=== PATIENT | female | born 1970 ===

== ENCOUNTER 2024-04-11 05:44 | Day surgery (SDC) | payer OTHER ==
[2024-04-04 12:45] LABS: ALBUMIN 3.8 gm/dL (3.4-5.0); BILIRUBIN TOTAL 0.67 mg/dL (0.3-1.2); CALCIUM 9.4 mg/dL (8.5-10.1); CREATININE SERUM 0.83 mg/dL (0.55-1.02); GFR 71.37; GLOBULINA 3.7 G/DL (2.4-3.5); POTASSIUM 3.74 mEq/L (3.5-5.1); TOTAL PROTEIN 7.5 gm/dL (6.4-8.2)
[2024-04-04 13:11] VITALS: BP 142/79
[~2024-04-11] VITALS: Ht 170.2 cm; Wt 72.1 kg
[2024-04-11] MEDS ORDERED: KETOROLAC TROMETHAMINE 30 MG VIAL IV STA (15:18)
[2024-04-11] MEDS ORDERED: METRONIDAZOLE/SODIUM CHLORIDE 500 MG/100 ML PIGGYBACK IV SCH (15:45)
[2024-04-11] MEDS ORDERED: CEFAZOLIN SODIUM 1,000 MG VIAL IV SCH (15:45)
[2024-04-11] MEDS ORDERED: HEMOSTATIC MATRIX 1 KIT KIT TOP ONE (15:45)
[2024-04-11] MEDS ORDERED: MORPHINE SULFATE 4 MG/ML VIAL IV ONE (16:15)
== END 2024-04-11 17:40 | disposition home or self-care (01) ==
LOC: CIR.AMB 05:44
PROVIDERS: ATTEND Obstetrics & Gynecology Gynecologic Oncology
DX: N83.291 Other ovarian cyst, right side (principal); N80.C19 Endometriosis of the anterior abdominal wall, unspecified depth; N80.201 Endometriosis of right fallopian tube, unspecified depth; N80.101 Endometriosis of right ovary, unspecified depth